=== PATIENT | male | born 1955 | race Hispanic/Latino ===

== ENCOUNTER → 2023-06-05 | Outpatient (CLI) | payer OTHER, MEDICARE ==
[2023-06-05 16:18] LABS: BASOPHILS # (AUTO) 0.07 K/uL (0.00-0.20); BASOPHILS % (AUTO) 0.8 % (0.0-5.0); EOSINOPHILS # (AUTO) 0.35 K/uL (0.00-0.70); EOSINOPHILS % (AUTO) 4.1 % (0.0-8.0); HEMATOCRIT 41.4 % (42-54); IMMATURE GRANULOCYTE ABSOLUTE 0.01 K/uL (0-1); LYMPHOCYTES # (AUTO) 2.2 K/uL (1.0-4.8); LYMPHOCYTES % (AUTO) 26.5 % (21.0-51.0); MEAN CORPUSCULAR HGB CONC 33.6 g/dL (32.0-36.0); MEAN CORPUSCULAR VOLUME 95.4 fL (79-99); MONOCYTES # (AUTO) 0.9 K/uL (0.1-1.0); MONOCYTES % (AUTO) 10.6 % (3.0-13.0); NEUTROPHILS # (AUTO) 4.9 K/uL (1.8-7.7); NEUTROPHILS % (AUTO) 57.9 % (40.0-77.0); PLATELET COUNT (AUTO) 409 K/uL (130-400); RED BLOOD CELL COUNT(AUTO) 4.34 MIL/uL (4.50-6.20); WHITE BLOOD COUNT (AUTO) 8.5 K/uL (4.8-10.8)
== END | disposition home or self-care (01) ==
LOC: LAB 14:43
PROVIDERS: ATTEND Internal Medicine Cardiovascular Disease
DX: I20.9 Angina pectoris, unspecified (principal)
CPT/HCPCS: 36415; 85025

== ENCOUNTER → 2023-08-14 | Outpatient (CLI) | payer OTHER, MEDICARE ==
[~2023-08-14] VITALS: Ht 165.1 cm; Wt 79.7 kg
[~2023-08-14] MED LIST: ATOR40TA71 PO; FAMO40TA7 PO; HYDR12.54 PO; LISI20TA24 PO; METF-446 PO; RIVA2.5T PO; SEMA7TAB2 PO; VITAMIN D3 PO
[2023-08-14 16:07] LABS: BASOPHILS # (AUTO) 0.02 K/uL (0.00-0.20); BASOPHILS % (AUTO) 0.4 % (0.0-5.0); EOSINOPHILS # (AUTO) 0.02 K/uL (0.00-0.70); EOSINOPHILS % (AUTO) 0.4 % (0.0-8.0); HEMATOCRIT 45.3 % (42-54); IMMATURE GRANULOCYTE ABSOLUTE 0.02 K/uL (0-1); LYMPHOCYTES # (AUTO) 1.3 K/uL (1.0-4.8); MEAN CORPUSCULAR HEMOGLOBIN 32.5 pg (27.0-33.0); MEAN CORPUSCULAR VOLUME 90.4 fL (79-99); MONOCYTES # (AUTO) 0.9 K/uL (0.1-1.0); MONOCYTES % (AUTO) 17.1 % (3.0-13.0); NEUTROPHILS # (AUTO) 2.8 K/uL (1.8-7.7); NEUTROPHILS % (AUTO) 55.7 % (40.0-77.0); PLATELET COUNT (AUTO) 287 K/uL (130-400); RED BLOOD CELL COUNT(AUTO) 5.01 MIL/uL (4.50-6.20); RED CELL DISTRIBUTION WIDTH 11.9 % (11.0-15.5)
[2023-08-14 16:17] LABS: CREATININE 1.5 mg/dL (0.5-1.5); INR < 0.93 (0.85-1.15); POTASSIUM 5.1 mmol/L (3.5-5.1); PROTHROMBIN TIME 10.3 SEC (9.6-11.6)
[2023-08-14 16:18] LABS: PARTIAL THROMBOPLASTIN TIME 29.3 SEC (26.3-35.5)
[2023-08-14 16:20] VITALS: BP 148/69; PULSE 85; RESP 16
== END | disposition home or self-care (01) ==
LOC: DAH 10:00 → EDSTATUS 08-19 15:00
PROVIDERS: ATTEND Surgery
DX: Z01.812 Encounter for preprocedural laboratory examination (principal); K42.9 Umbilical hernia without obstruction or gangrene; K43.2 Incisional hernia without obstruction or gangrene; I73.9 Peripheral vascular disease, unspecified; Z79.01 Long term (current) use of anticoagulants
CPT/HCPCS: 36415; 80048; 85025; 85610; 85730

== ENCOUNTER 2023-11-15 05:12 | Day surgery (SDC) | payer OTHER, MEDICARE ==
[~2023-11-15 05:12] MED LIST changes: +ACET-2079 PO; -FAMO40TA7 PO; +MECO10005 PO
[2023-11-15 06:20] LABS: BASOPHILS # (AUTO) 0.07 K/uL (0.00-0.20); BASOPHILS % (AUTO) 0.7 % (0.0-5.0); EOSINOPHILS # (AUTO) 0.39 K/uL (0.00-0.70); EOSINOPHILS % (AUTO) 3.7 % (0.0-8.0); HEMATOCRIT 29.4 % (42-54); IMMATURE GRANULOCYTE ABSOLUTE 0.05 K/uL (0-1); LYMPHOCYTES # (AUTO) 1.6 K/uL (1.0-4.8); LYMPHOCYTES % (AUTO) 15.3 % (21.0-51.0); MEAN CORPUSCULAR HEMOGLOBIN 30.7 pg (27.0-33.0); MEAN CORPUSCULAR HGB CONC 33.3 g/dL (32.0-36.0); MEAN CORPUSCULAR VOLUME 92.2 fL (79-99); MONOCYTES # (AUTO) 1.4 K/uL (0.1-1.0); MONOCYTES % (AUTO) 13.2 % (3.0-13.0); NEUTROPHILS # (AUTO) 7.1 K/uL (1.8-7.7); NEUTROPHILS % (AUTO) 66.6 % (40.0-77.0); PLATELET COUNT (AUTO) 566 K/uL (130-400); RED BLOOD CELL COUNT(AUTO) 3.19 MIL/uL (4.50-6.20); RED CELL DISTRIBUTION WIDTH 13.3 % (11.0-15.5); WHITE BLOOD COUNT (AUTO) 10.6 K/uL (4.8-10.8)
[2023-11-15 06:32] LABS: CREATININE 1.2 mg/dL (0.5-1.5); POTASSIUM 5.3 mmol/L (3.5-5.1)
[2023-11-15 06:48] LABS: INR 1.02 (0.85-1.15); PROTHROMBIN TIME 11.8 SEC (9.6-11.6)
[2023-11-15 06:50] LABS: PARTIAL THROMBOPLASTIN TIME 32.6 SEC (26.3-35.5)
[2023-11-15] MEDS: ACETAMINOPHEN WITH CODEINE 1 TAB TAB ONE (09:39)
[2023-11-15] MEDS: ACETAMINOPHEN WITH CODEINE 1 TAB TAB PO PRN (11:17)
[2023-11-15] MEDS ORDERED: IODIXANOL 320 MG/ML 100 ML VIAL ONE (13:07)
[2023-11-15] MEDS ORDERED: LIDOCAINE HCL 1% MDV 50ML VIAL ONE (13:07)
== END 2023-11-15 14:50 | disposition home or self-care (01) ==
LOC: CLH 05:12 → DAH 06:02 → CLH 14:50
PROVIDERS: ATTEND Internal Medicine Critical Care Medicine
DX: L02.211 Cutaneous abscess of abdominal wall (principal); T83.038A Leakage of other urinary catheter, initial encounter; L03.311 Cellulitis of abdominal wall; A41.9 Sepsis, unspecified organism; R65.21 Severe sepsis with septic shock; K65.8 Other peritonitis; K63.1 Perforation of intestine (nontraumatic); I11.0 Hypertensive heart disease with heart failure; I50.30 Unspecified diastolic (congestive) heart failure; E78.5 Hyperlipidemia, unspecified; E11.9 Type 2 diabetes mellitus without complications; E66.01 Morbid (severe) obesity due to excess calories; F10.10 Alcohol abuse, uncomplicated; Z79.01 Long term (current) use of anticoagulants; Z79.899 Other long term (current) drug therapy
CPT/HCPCS: 49423; 76080; 49424; 75984; 80048; 85025; 85610; 85730; 82948 ×2; 36415; A4344; J1644; J3490; Q9967; C1729; A4215; A4222; A4221; A4663; A4216; A4606; A4223 ×3

== ENCOUNTER → 2024-01-06 | Outpatient (CLI) | payer OTHER, MEDICARE ==
[~2024-01-06] MED LIST changes: +IOHEXOL-350 75 ML VIAL IV ONE
== END | disposition home or self-care (01) ==
LOC: RAH 09:15
PROVIDERS: ATTEND Surgery
DX: K43.9 Ventral hernia without obstruction or gangrene (principal); K63.2 Fistula of intestine; M47.815 Spondylosis without myelopathy or radiculopathy, thoracolumbar region
CPT/HCPCS: 74177; Q9967

== ENCOUNTER 2024-04-17 07:48 | Day surgery (SDC) | payer OTHER, MEDICARE ==
[~2024-04-17 07:48] MED LIST changes: -ACET-2079 PO; +AMIO200T68 PO; +AMLO-258 PO; -HYDR12.54 PO; -IOHEXOL-350 75 ML VIAL IV ONE; -LISI20TA24 PO; -MECO10005 PO; -METF-446 PO; +MULT-1296 PO; -RIVA2.5T PO; -SEMA7TAB2 PO; +VITA1CAP85 PO
== END 2024-04-17 10:40 | disposition home or self-care (01) ==
LOC: DAH 07:48 → RAH 07:48 → EDSTATUS 08:00 → RAH 10:40
PROVIDERS: ATTEND Surgery
DX: L76.34 Postprocedural seroma of skin and subcutaneous tissue following other procedure (principal); T81.89XA Other complications of procedures, not elsewhere classified, initial encounter; I10 Essential (primary) hypertension; E11.9 Type 2 diabetes mellitus without complications; E78.00 Pure hypercholesterolemia, unspecified; Y83.9 Surgical procedure, unspecified as the cause of abnormal reaction of the patient, or of later complication, without mention of misadventure at the time of the procedure
CPT/HCPCS: 10030; 87071; 87205; C1729; 10005; 76942

== ENCOUNTER → 2024-04-30 | Outpatient (CLI) | payer OTHER, MEDICARE ==
[2024-04-30 12:11] LABS: BASOPHILS # (AUTO) 0.06 K/uL (0.00-0.20); BASOPHILS % (AUTO) 0.7 % (0.0-5.0); EOSINOPHILS # (AUTO) 0.39 K/uL (0.00-0.70); EOSINOPHILS % (AUTO) 4.6 % (0.0-8.0); HEMATOCRIT 33.5 % (42-54); IMMATURE GRANULOCYTE ABSOLUTE 0.01 K/uL (0-1); LYMPHOCYTES # (AUTO) 1.8 K/uL (1.0-4.8); MEAN CORPUSCULAR HEMOGLOBIN 31.7 pg (27.0-33.0); MEAN CORPUSCULAR HGB CONC 32.5 g/dL (32.0-36.0); MEAN CORPUSCULAR VOLUME 97.4 fL (79-99); MONOCYTES # (AUTO) 0.8 K/uL (0.1-1.0); MONOCYTES % (AUTO) 9.4 % (3.0-13.0); NEUTROPHILS # (AUTO) 5.5 K/uL (1.8-7.7); NEUTROPHILS % (AUTO) 64.2 % (40.0-77.0); PLATELET COUNT (AUTO) 412 K/uL (130-400); RED BLOOD CELL COUNT(AUTO) 3.44 MIL/uL (4.50-6.20); RED CELL DISTRIBUTION WIDTH 16.1 % (11.0-15.5); WHITE BLOOD COUNT (AUTO) 8.5 K/uL (4.8-10.8)
[2024-04-30 12:22] LABS: ALBUMIN 3.7 g/dL (3.5-5.0); BILIRUBIN,TOTAL 0.3 mg/dL (0.2-1.0); CREATININE 0.9 mg/dL (0.5-1.3); MAGNESIUM 1.6 mg/dL (1.80-2.40); POTASSIUM 5.4 mmol/L (3.5-5.1); TOTAL PROTEIN, SERUM 8.1 g/dL (6.0-8.3)
[2024-04-30 12:41] LABS: B-TYPE NATRIURETIC PEPTIDE 381 pg/mL (0-100)
== END | disposition home or self-care (01) ==
LOC: LAB 10:14
PROVIDERS: ATTEND Internal Medicine Cardiovascular Disease
DX: I10 Essential (primary) hypertension (principal); I73.9 Peripheral vascular disease, unspecified; I50.32 Chronic diastolic (congestive) heart failure
CPT/HCPCS: 36415; 80053; 80061; 83735; 83880; 85025

== ENCOUNTER → 2024-06-17 | Outpatient (CLI) | payer OTHER, MEDICARE ==
[2024-06-17 16:31] LABS: CREATININE 1.5 mg/dL (0.5-1.3); MAGNESIUM 1.9 mg/dL (1.80-2.40)
== END | disposition home or self-care (01) ==
LOC: LAB 12:54
PROVIDERS: ATTEND Internal Medicine Cardiovascular Disease
DX: I73.9 Peripheral vascular disease, unspecified (principal); D64.9 Anemia, unspecified
CPT/HCPCS: 36415; 80048; 83735; 83880

== ENCOUNTER → 2024-10-07 | Outpatient (CLI) | payer OTHER, MEDICARE ==
[2024-10-07 12:16] LABS: BASOPHILS # (AUTO) 0.06 K/uL (0.00-0.20); BASOPHILS % (AUTO) 0.7 % (0.0-5.0); EOSINOPHILS # (AUTO) 0.43 K/uL (0.00-0.70); EOSINOPHILS % (AUTO) 4.7 % (0.0-8.0); HEMATOCRIT 36.3 % (42-54); IMMATURE GRANULOCYTE ABSOLUTE 0.02 K/uL (0-1); LYMPHOCYTES # (AUTO) 2.5 K/uL (1.0-4.8); LYMPHOCYTES % (AUTO) 26.9 % (21.0-51.0); MEAN CORPUSCULAR HEMOGLOBIN 32.4 pg (27.0-33.0); MEAN CORPUSCULAR HGB CONC 32.8 g/dL (32.0-36.0); MEAN CORPUSCULAR VOLUME 98.9 fL (79-99); MONOCYTES # (AUTO) 0.9 K/uL (0.1-1.0); MONOCYTES % (AUTO) 9.7 % (3.0-13.0); NEUTROPHILS # (AUTO) 5.3 K/uL (1.8-7.7); NEUTROPHILS % (AUTO) 57.8 % (40.0-77.0); PLATELET COUNT (AUTO) 359 K/uL (130-400); RED BLOOD CELL COUNT(AUTO) 3.67 MIL/uL (4.50-6.20); RED CELL DISTRIBUTION WIDTH 12.7 % (11.0-15.5); WHITE BLOOD COUNT (AUTO) 9.2 K/uL (4.8-10.8)
[2024-10-07 12:50] LABS: ALBUMIN 3.7 g/dL (3.5-5.0); BILIRUBIN,TOTAL 0.3 mg/dL (0.2-1.0); CREATININE 0.9 mg/dL (0.5-1.3); POTASSIUM 4.6 mmol/L (3.5-5.1)
== END | disposition home or self-care (01) ==
LOC: LAB 10:26
PROVIDERS: ATTEND Internal Medicine Cardiovascular Disease
DX: I10 Essential (primary) hypertension (principal); E78.5 Hyperlipidemia, unspecified
CPT/HCPCS: 36415; 80053; 80061; 85025

== ENCOUNTER 2024-11-03 13:19 | Emergency (ER) | payer OTHER, MEDICARE ==
[~2024-11-03] VITALS: Ht 165.1 cm; Wt 81.6 kg
--- NOTE | 2024-11-03 13:51 | ERN ---
General Chief Complaint: Chest Pain Stated Complaint: SENT BY History of Present Illness Initial Comments 60-year-old male history of ACS and hypertension presents for chest pain on and off for three days. Patient saw Dr. Galvez, was discharged with some nitroglycerin. Today he attempted to go to his office but was unable to get an appointments of the office recommend that he come to the ER for treatment evaluation. He was describing chest pressures that are on and off in the center of the chest. No dizziness dyspnea or other complaints. Allergies: Coded Allergies: No Known Drug Allergies (Unverified Allergy, Unknown, 08/14/23) Home Meds Reported Medications Amiodarone HCl (Amiodarone HCl) 200 Mg Tablet, 200 MG PO BID, TAB 01/11/24 Amlodipine Besylate (Amlodipine Besylate) 10 Mg Tablet, 10 MG PO DAILY for 30 Days, #30 TAB 0 Refills 01/11/24 Vitamin B Complex (Vitamin B Complex) 1 Each Capsule, 1 EACH PO DAILY, CAP 01/11/24 Multivitamin/Iron/Folic Acid (Centrum Adults Tablet) 18 Mg Iron-400 Mcg Tablet, 1 EACH PO DAILY, TAB 01/11/24 Atorvastatin Calcium (Atorvastatin Calcium) 40 Mg Tablet, 40 MG PO HS, TAB 08/14/23 [Vitamin D3] No Conflict Check, 00161 UNIT PO WEEKLY 08/14/23 Past Medical History Past Medical History: Diabetes-Type II, High Cholesterol, Hypertension Medical History Other: HERNIA Past Surgical History: Other Surgical History Other: HERNIA ROS Dictation CONSTITUTIONAL: No chills, no fever, no weakness, no diaphoresis, no malaise. HEAD/FACE: No signs of trauma. EENT: No eye pain, no blurred vision, no tearing, no double vision, no ear pain, no ear discharge, no nose pain, no nasal congestion, no throat pain, no throat swelling, no mouth pain. RESPIRATORY: No cough, no orthopnea, no SOB, no stridor, no wheezing. CARDIOVASCULAR: Chest pain GASTROINTESTINAL/ABDOMINAL: No abdominal pain, no constipation, no diarrhea, no nausea, no vomiting. GENITOURINARY: No abnormal discharge, no dysuria, no frequent urination, no hematuria. No complaints of pain in the genitals. MUSCULOSKELETAL: No back pain, no gout, no joint pain, no joint swelling, no muscle pain, no muscle stiffness, no neck pain. INTEGUMENTARY: No change in color, no change in hair/nails, no dryness, no lesion, no lumps, no rash. NEUROLOGICAL/PSYCH: No anxiety, not depressed, no emotional problem, no headache, no numbness, no pre-existing deficit, no history of seizures, no tremors, no weakness. HEMATOLOGIC/LYMPHATIC: Not anemic, no history of blood clots, no apparent bleeding, no bruising, glands not swollen. All Systems Negative, Except as Noted. Physical Exam Physical Exam Dictation VITAL SIGNS: Reviewed. GENERAL APPEARANCE: Alert, oriented x3, no acute distress HEAD AND FACE: Non-traumatic. EYES: PERRL, pink conjunctivas, eyelid no trauma, anterior chamber clear. EARS: Pinnas intact and no signs of trauma or erythema. Ear canals clear and no discharge. TMs no erythema. NOSE: No discharge, no bleeding. OROPHARYNX: Mouth normal, teeth no caries, tongue pink. Pharynx clear, no erythema. Tonsils no exudates, no abscesses noted. Mucous membrane moist. NECK: Supple, non-tender, no thyromegaly, no masses, no JVD, no bruits. BREAST: Deferred. CHEST: No tenderness, no crepitus, no paradoxical movement, no retractions. LUNGS: Clear, well-ventilated, symmetric, no rales, no wheezing, no rhonchi, no stridor, good breath sounds bilaterally. HEART: Regular rate, regular rhythm, no murmur, no gallops. VASCULAR: No peripheral edema. ABDOMEN: Soft, positive bowel sounds, nondistended, no guarding, nontender, no rebound, no masses no hepatomegaly, no splenomegaly, no Kirk's sign, no hernias. RECTAL: Deferred. GENITAL: Deferred. NEUROLOGICAL: Normal speech, gross motor function intact, gross sensory function intact. MUSCULOSKELETAL: Neck nontender, full range of motion, back nontender, full range of motion. EXTREMITIES: Nontender, full range of motion. SKIN: Color pink, dry, no turgor, no rash, no lacerations, no abrasions, no contusions. LYMPHATICS: Deferred. Results Laboratory and Microbiology Lab and Micro Result Laboratory Tests Test 11/03/24 14:08 11/03/24 14:28 White Blood Count 10.0 K/uL (4.8-10.8) Red Blood Count 3.55 MIL/uL (4.50-6.20) L Hemoglobin 11.4 g/dL (14.0-18.0) L Hematocrit 33.9 % (42-54) L Mean Corpuscular Volume 95.5 fL (79-99) Mean Corpuscular Hemoglobin 32.1 pg (27.0-33.0) Mean Corpuscular Hemoglobin Concent 33.6 g/dL (32.0-36.0) Red Cell Distribution Width 12.4 % (11.0-15.5) Platelet Count 304 K/uL (130-400) Mean Platelet Volume 9.2 fL (7.5-10.5) Immature Granulocyte % (Auto) 0.3 % (0-1) Neutrophils (%) (Auto) 83.8 % (40.0-77.0) H Lymphocytes (%) (Auto) 11.4 % (21.0-51.0) L Monocytes (%) (Auto) 4.2 % (3.0-13.0) Eosinophils (%) (Auto) 0.1 % (0.0-8.0) Basophils (%) (Auto) 0.2 % (0.0-5.0) Neutrophils # (Auto) 8.4 K/uL (1.8-7.7) H Lymphocytes # (Auto) 1.1 K/uL (1.0-4.8) Monocytes # (Auto) 0.4 K/uL (0.1-1.0) Eosinophils # (Auto) 0.01 K/uL (0.00-0.70) Basophils # (Auto) 0.02 K/uL (0.00-0.20) Absolute Immature Granulocyte (auto 0.03 K/uL (0-1) Nucleated Red Blood Cells 0.0 % (0.0-0.19) Sodium Level 138 mmol/L (136-145) Potassium Level 5.6 mmol/L (3.5-5.1) H Chloride Level 109 mmol/L (101-111) Carbon Dioxide Level 17 mmol/L (21-32) L Blood Urea Nitrogen 21 mg/dL (7-18) H Creatinine 1.0 mg/dL (0.5-1.3) Glomerular Filtration Rate Calc 82 mL/min (>90) Random Glucose 107 mg/dL (70-105) H Total Calcium 8.4 mg/dL (8.5-10.1) L B-Type Natriuretic Peptide 162 pg/mL (0-100) H Troponin I < 0.05 ng/mL (0.00-0.05) ED Course Orders Procedure Category Date Status Time Vital Signs Per CPOE 11/03/24 Transmitted Routine 13:47 B-Type Natriuretic LAB 11/03/24 Complete Peptide 13:47 Chest 1vw RAD 11/03/24 Resulted 13:47 12 Lead Ekg Tracing- EKG 11/03/24 Complete Technical 13:47 Oxygen By Nc/Pulse Ox CPOE 11/03/24 Transmitted 13:47 Maintain Iv CPOE 11/03/24 Transmitted 13:47 Iv Insertion CPOE 11/03/24 Transmitted 13:47 Cardiac Monitoring CPOE 11/03/24 Transmitted 13:47 Pulse Oximetry With CPOE 11/03/24 Transmitted Vs And Prn 13:47 Cbc With Differential LAB 11/03/24 Complete 13:47 Activity: Br W/Brp CPOE 11/03/24 Transmitted With Assist 13:47 Creatine Kinase, Total LAB 11/03/24 In Process 13:47 Troponin I High LAB 11/03/24 In Process Sensitivity 13:47 Urinalysis Profile LAB 11/03/24 Logged 13:47 Troponin Poc Order LAB 11/03/24 Complete Only 13:47 Bedside Troponin-I LAB.ER 11/03/24 In Process (Poc) 13:47 Basic Metabolic Panel LAB 11/03/24 In Process 13:47 Aspirin 325mg Tab PHA 11/03/24 Complete (Aspirin 325mg Tab) 14:30 Current Medications Medications (Trade) Dose Ordered Sig/Shelly Route PRN Reason Start Time Stop Time Status Last Admin Dose Admin Aspirin (Aspirin 325mg Tab) 325 mg ONCE ONCE PO 11/03/24 14:30 11/03/24 14:31 DC Vital Signs Date Time Temp Pulse Resp B/P (MAP) Pulse Ox O2 Delivery O2 Flow Rate FiO2 11/03/24 13:49 98.4 77 20 162/72 99 Room Air 0 DX & DISP Disposition: Inpatient Departure Impression: Primary Impression: Chest pain with high risk for cardiac etiology Additional Impressions: Metabolic acidosis, Hyperkalemia, Normocytic anemia Condition: Stable Referrals: ABDI SYED (PCP) SANDOR PEREIRA DO Nov 03, 2024 13:51
--- NOTE | 2024-11-03 13:56 | EKG ---
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
[2024-11-03 14:48] LABS: BASOPHILS # (AUTO) 0.02 K/uL (0.00-0.20); BASOPHILS % (AUTO) 0.2 % (0.0-5.0); EOSINOPHILS # (AUTO) 0.01 K/uL (0.00-0.70); EOSINOPHILS % (AUTO) 0.1 % (0.0-8.0); HEMATOCRIT 33.9 % (42-54); IMMATURE GRANULOCYTE ABSOLUTE 0.03 K/uL (0-1); LYMPHOCYTES # (AUTO) 1.1 K/uL (1.0-4.8); LYMPHOCYTES % (AUTO) 11.4 % (21.0-51.0); MEAN CORPUSCULAR HEMOGLOBIN 32.1 pg (27.0-33.0); MEAN CORPUSCULAR HGB CONC 33.6 g/dL (32.0-36.0); MEAN CORPUSCULAR VOLUME 95.5 fL (79-99); MONOCYTES # (AUTO) 0.4 K/uL (0.1-1.0); MONOCYTES % (AUTO) 4.2 % (3.0-13.0); NEUTROPHILS # (AUTO) 8.4 K/uL (1.8-7.7); NEUTROPHILS % (AUTO) 83.8 % (40.0-77.0); PLATELET COUNT (AUTO) 304 K/uL (130-400); RED BLOOD CELL COUNT(AUTO) 3.55 MIL/uL (4.50-6.20); RED CELL DISTRIBUTION WIDTH 12.4 % (11.0-15.5)
[2024-11-03 15:05] LABS: POTASSIUM 5.6 mmol/L (3.5-5.1)
[2024-11-03 15:08] LABS: B-TYPE NATRIURETIC PEPTIDE 162 pg/mL (0-100)
--- NOTE | 2024-11-03 15:17 | HMCIMG ---
CHEST 1VW HISTORY: Chest pain COMPARISON: 01/24/2024 FINDINGS: A frontal projection of the chest was obtained. Mild bilateral pulmonary infiltrates are seen may be related to mild pulmonary vascular congestion with possible superimposed pneumonitis. The heart is borderline enlarged. Degenerative changes are seen. IMPRESSION: 1. Mild bilateral pulmonary infiltrates are seen may be related to mild pulmonary vascular congestion with possible superimposed pneumonitis.
[2024-11-03] MEDS: ASPIRIN 325MG TAB PO ONE (15:53)
[2024-11-03 15:54] VITALS: BP 142/60; PULSE 77; RESP 19; TEMP 98.6; O2SAT 99
--- NOTE | 2024-11-03 16:22 | NUR ---
PATIENT REQUEST TO LEAVE AMA NOTIFIED DOCTOR ESTHER AND DISCUSSED THE RISK FACTOR, PT WOULD LIKE TO LEAVE SPOKE TO PATIENT AND
--- NOTE | 2024-11-03 18:13 | HP ---
[facility] HISTORY AND PHYSICAL Date of Service: Nov 03, 2024 Time of Service: 18:13 HISTORY OF PRESENT ILLNESS: DATE OF SERVICE: 11/03/2024 This is a 68-year-old male with past medical history of diabetes mellitus type 2, hypertension, hyperlipidemia, history of umbilical hernia repair complicated with intra-abdominal abscess requiring long hospitalization who presented to the hospital secondary to chest pain. Patient states he has been having episodes of midsternal chest pain intermittently for the past 2-3 days. He noted he had worsening chest pain yesterday while he was working on the carpet. The pain lasted for a few minutes and resolved with rest. Denied any numbness to the hands, diaphoresis, nausea, vomiting. He had seen Dr. Galvez before and was di scharged on nitroglycerin. He has not had any prior cardiac procedures or any stress test done before. Denied any abdominal pain, nausea, vomiting, fever, chills. Additionally with the chest pain he has also noted shortness of breath. He was going to follow up with Dr. Mendez has he has noted small bump around his left lower abdominal wall. Denied any drainage from the abdomen. Denied any cough, falls, syncopal episode. 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 Labs were notable for white count of 10.0, hemoglobin was 11.4, platelet count was 304 K sodium was 138, potassium was 5.6, chloride was 109, bicarb was 17, creatinine was 1.0, BNP was 162 REVIEW OF SYSTEMS CONSTITUTIONAL: Denies fevers, chills, or night sweats. No unintentional weight loss reported. NEUROLOGICAL: Denies headache, amaurosis fugax, motor weakness, sensory deficit, vertigo/spinning sensation, gait abnormalities, or tremors. ENT: No hearing loss, otalgia, otorrhea, rhinitis, rhinorrhea, hoarseness, or sore throat. CARDIOVASCULAR: Positive for chest pain at rest and exertion. Denied any orthopnea, PND PULMONARY: Denies any shortness of breath, cough, phlegm/sputum, hemoptysis, pleuritic chest pain. GASTROINTESTINAL: Denies any type of dysphagia to either liquids or solids. Denies nausea, vomiting, pyrosis, early satiety, abdominal pain, diarrhea, constipation, or changes in stool consistency or caliber. Denies coffee-ground emesis, hematemesis, hematochezia, or melanotic stools. GENITOURINARY: Denies frequency, urgency, nocturia, hematuria or incontinence (Storage/Irritative symptoms.) Low urinary stream, straining to void, urinary intermittency or hesitancy, splitting of the voiding stream, terminal dribbling. ENDOCRINOLOGIC: Denies polyuria, polydipsia, polyphagia or heat/cold intolerances. HEMATOLOGIC: Denies thrombophilia/previous clots, or coagulopathy/bleeding disorders. ONCOLOGIC: Denies personal history of malignancy. DERMATOLOGIC: Denies rashes or pruritus. PSYCHIATRIC: Denies any suicidal or homicidal ideation. Denies hallucinations. PAST MEDICAL HISTORY: Diabetes mellitus type 2, hypertension, hyperlipidemia, history of umbilical complicated with intra-abdominal abscess PAST SURGICAL HISTORY: Umbilical hernia repair, history of IR guided intra-abdominal drain placement PAST SOCIAL HISTORY: Currently smokes one pack every two days for at least 10 years. He drinks six beers every weekend for at least five years. Denied any drug use FAMILY HISTORY: Denied any pertinent family history Coded Allergies: No Known Drug Allergies (Unverified Allergy, Unknown, 08/14/23) PHYSICAL EXAM GENERAL APPEARANCE: The patient is awake, alert, and oriented, in no acute cardiopulmonary distress. NEUROLOGICAL: Cranial nerves II-XII grossly intact. Motor is 5/5 in bilateral upper and lower extremities proximal to distal. No sensory deficits. HEENT: Face is symmetric. Pupils are equal and reactive. Extraocular movements are intact. NECK: Supple. No JVD. No thyromegaly. No submental, submandibular, pre- /postauricular, occipital or supraclavicular lymphadenopathy. CHEST: Normal chest expansion. No Telemetry. LUNGS: Absence of any rales, rhonchi or any wheezing. CARDIOVASCULAR: Regular. S1 and S2 normal. No appreciable rubs, murmurs or gallops. ABDOMEN: Soft, nontender, and nondistended. There is no rebound, voluntary guarding, or rigidity. : Deferred. No Lopez. EXTREMITIES: Non-edematous and not cyanotic. No clubbing. Good capillary refill. SKIN: No skin breakdown. Vital Sign (Last 24 Hours) 11/03/24 15:54 Temp 98.6 Pulse 77 Resp 19 B/P (MAP) 142/60 Pulse Ox 99 O2 Delivery Room Air* O2 Flow Rate 0 FiO2 21 LABS: Laboratory: Test 11/03/24 14:28 11/03/24 14:08 Range/Units Troponin I < 0.05 0.00-0.05 ng/mL White Blood Count 10.0 4.8-10.8 K/uL Red Blood Count 3.55 L 4.50-6.20 MIL/uL Hemoglobin 11.4 L 14.0-18.0 g/dL Hematocrit 33.9 L 42-54 % Mean Corpuscular Volume 95.5 79-99 fL Mean Corpuscular Hemoglobin 32.1 27.0-33.0 pg Mean Corpuscular Hemoglobin Concent 33.6 32.0-36.0 g/dL Red Cell Distribution Width 12.4 11.0-15.5 % Platelet Count 304 130-400 K/uL Mean Platelet Volume 9.2 7.5-10.5 fL Immature Granulocyte % (Auto) 0.3 0-1 % Neutrophils (%) (Auto) 83.8 H 40.0-77.0 % Lymphocytes (%) (Auto) 11.4 L 21.0-51.0 % Monocytes (%) (Auto) 4.2 3.0-13.0 % Eosinophils (%) (Auto) 0.1 0.0-8.0 % Basophils (%) (Auto) 0.2 0.0-5.0 % Neutrophils # (Auto) 8.4 H 1.8-7.7 K/uL Lymphocytes # (Auto) 1.1 1.0-4.8 K/uL Monocytes # (Auto) 0.4 0.1-1.0 K/uL Eosinophils # (Auto) 0.01 0.00-0.70 K/uL Basophils # (Auto) 0.02 0.00-0.20 K/uL Absolute Immature Granulocyte (auto 0.03 0-1 K/uL Nucleated Red Blood Cells 0.0 0.0-0.19 % Sodium Level 138 136-145 mmol/L Potassium Level 5.6 H 3.5-5.1 mmol/L Chloride Level 109 101-111 mmol/L Carbon Dioxide Level 17 L 21-32 mmol/L Blood Urea Nitrogen 21 H 7-18 mg/dL Creatinine 1.0 0.5-1.3 mg/dL Glomerular Filtration Rate Calc 82 >90 mL/min Random Glucose 107 H 70-105 mg/dL Total Calcium 8.4 L 8.5-10.1 mg/dL Total Creatine Kinase 44 # 21-232 U/L Troponin I High Sensitivity 9 4-75 ng/L B-Type Natriuretic Peptide 162 H 0-100 pg/mL DIAGNOSTICS / RADIOLOGY: Chest x-ray shows no acute infiltrates ASSESSMENT: Chest pain ACS rule out POA differential unstable angina Hyperkalemia Metabolic acidosis Diabetes mellitus type 2 Hypertension Hyperlipidemia History of umbilical hernia repair complicated by intra-abdominal abscess requiring hospitalization in 2023 Tobacco abuse History of alcohol PLAN: - I was called to admit the patient by ED secondary to chest pain. I saw the patient and examined the patient. I spoke to patient and her his . I recommended admission to the patient in setting of chest pain. I recommended patient to undergo troponin trend q.6 hours to rule out ACS. Additionally I also recommended consultation with Cardiology in setting of intermittent chest pain. Patient was also noted to be hyperkalemic and had metabolic acidosis. I recommended a ABG to be done with ketones. I also recommended medical therapy for hyperkalemia. Patient with history of intra-abdominal abscess. I also recommended a CT abdomen/pelvis to be done without contrast to rule out any intra-abdominal abscess. Patient declined to be admitted and wanted to leave against medical advice. I counseled the patient strongly to stay in the hospital and undergo further workup. Patient still adamantly declined. Patient signed AMA paperwork. I counseled patient that he is at high risk for morbidity and mortality on leaving against medical advice. Patient undestood the risk and still decided to leave. I also discussed this with ED physician. No admission order was placed since patient refused to be admitted. TERRENCE Garcia MD, MD Nov 03, 2024 18:13
== END 2024-11-03 16:16 | disposition left against medical advice (07) ==
LOC: EDH 13:19
DX: E87.5 Hyperkalemia (principal); R07.89 Other chest pain; E87.20 Acidosis, unspecified; D64.9 Anemia, unspecified; E11.9 Type 2 diabetes mellitus without complications; E78.00 Pure hypercholesterolemia, unspecified; F17.200 Nicotine dependence, unspecified, uncomplicated; I10 Essential (primary) hypertension; Z98.890 Other specified postprocedural states
CPT/HCPCS: 36415; 71045; 80048; 82550; 83880; 84484; 85025; 93005; 99285

== ENCOUNTER 2025-03-12 08:39 | Inpatient (IN) | payer OTHER, MEDICARE ==
[2025-03-10 11:39] LABS: BASOPHILS # (AUTO) 0.08 K/uL (0.00-0.20); BASOPHILS % (AUTO) 0.9 % (0.0-5.0); EOSINOPHILS # (AUTO) 0.54 K/uL (0.00-0.70); EOSINOPHILS % (AUTO) 6.3 % (0.0-8.0); IMMATURE GRANULOCYTE ABSOLUTE 0.02 K/uL (0-1); LYMPHOCYTES # (AUTO) 2.4 K/uL (1.0-4.8); LYMPHOCYTES % (AUTO) 27.4 % (21.0-51.0); MEAN CORPUSCULAR HEMOGLOBIN 32.8 pg (27.0-33.0); MEAN CORPUSCULAR HGB CONC 34.6 g/dL (32.0-36.0); MEAN CORPUSCULAR VOLUME 94.7 fL (79-99); MONOCYTES # (AUTO) 0.9 K/uL (0.1-1.0); MONOCYTES % (AUTO) 10.2 % (3.0-13.0); NEUTROPHILS # (AUTO) 4.7 K/uL (1.8-7.7); PLATELET COUNT (AUTO) 362 K/uL (130-400); RED BLOOD CELL COUNT(AUTO) 4.33 MIL/uL (4.50-6.20); RED CELL DISTRIBUTION WIDTH 13.1 % (11.0-15.5); WHITE BLOOD COUNT (AUTO) 8.6 K/uL (4.8-10.8)
[2025-03-10 11:50] LABS: POTASSIUM 4.7 mmol/L (3.5-5.1)
[2025-03-10 11:51] LABS: INR 0.97 (0.85-1.15); PROTHROMBIN TIME 10.3 SEC (9.6-11.6)
[2025-03-10 11:52] LABS: PARTIAL THROMBOPLASTIN TIME 26.5 SEC (26.3-35.5)
[2025-03-10 12:49] VITALS: BP 145/76; PULSE 89; RESP 18; TEMP 99.9
[2025-03-12] VITALS (25 sets, daily range): BP systolic 144–184; BP diastolic 63–89; PULSE 16–88; RESP 15–19; TEMP 97.5–98.8; O2SAT 94–98
[~2025-03-12] VITALS: Ht 165.1 cm; Wt 81.6 kg
[~2025-03-12 08:39] MED LIST changes: +AEC81 PO; -AMIO200T68 PO; -AMLO-258 PO; +ATOR40TA69 PO; -ATOR40TA71 PO; +LOSA50TA64 PO; -MULT-1296 PO; +SACU1TAB PO; +SEMA3TAB4 PO; -VITA1CAP85 PO; -VITAMIN D3 PO; +phenylEPHRINE HCL 10 MG/ML 1ML VIAL IV ONE
[2025-03-12] MEDS ORDERED: ketaMINE 50MG/ML SYRINGE 50 MG/ML DISP.SYRIN ONE (09:02)
[2025-03-12] MEDS ORDERED: ALBUMIN (HUMAN) 5% 250 ML IV ONE (09:03)
[2025-03-12] MEDS ORDERED: ROPivacaine 0.5% 5MG/ML 30ML ONE (09:04)
[2025-03-12] MEDS ORDERED: ePHEDrine SULFate 50 MG/ML AMPULE ONE (09:06)
[2025-03-12] MEDS ORDERED: dexaMETHasone SOD PHOSPHATE 10MG/ML 1ML VIAL ONE (09:08)
[2025-03-12] MEDS ORDERED: LIDOCAINE PF 100MG/5ML (2%) SYRINGE 5ML ONE (09:08)
[2025-03-12] MEDS ORDERED: FENTanyl CITRate PF 50 MCG/1 ML 2ML VIAL ONE ×3 (09:09→11:13)
[2025-03-12] MEDS ORDERED: ondanSETRON 4MG INJ ONE (09:09)
[2025-03-12] MEDS ORDERED: SUCCINYLCHOLINE CHLORIDE 20 MG/ML 10 ML VIAL ONE (09:09)
[2025-03-12] MEDS ORDERED: rocuRONium bROMide 10MG/1ML 5ML VL ONE (09:09)
[2025-03-12] MEDS ORDERED: proPOFol 10 MG/ML 20ML VIAL IV ONE (09:09)
[2025-03-12] MEDS ORDERED: GLYCOPYRROLATE 0.2 MG/ML 5 ML VIAL ONE (09:09)
[2025-03-12] MEDS ORDERED: NEOSTIGMINE METHYLSULFATE 1MG/ML IV ONE (09:09)
[2025-03-12] MEDS ORDERED: MIDAZOLAM HCL 1 MG/ML 2ML VIAL ONE (09:10)
[2025-03-12] MEDS ORDERED: BUPIvacaine/PF 0.25% 30ML VIAL IJ ONE (09:51)
[2025-03-12] MEDS: ceFAZolin SODIUM 2 GM VIAL IVPB ONE ×2 (10:19)
--- NOTE | 2025-03-12 11:30 | OP ---
Operative Note: DATE OF PROCEDURE: 03/12/25 SURGEON: EFREN CHOI MD CRTS: [] ANESTHESIA: [] General ANESTHESIOLOGIST/DOOR FRAME BUILDER: [] PREOPERATIVE DIAGNOSIS: [] Incisional hernia POSTOPERATIVE DIAGNOSIS: [] The same SYNOPSIS: [] PROCEDURE: [] Repair of incisional hernia with mesh Drainage of preperitoneal collection ESTIMATED BLOOD LOSS: [] Minimal INDICATIONS: [] DESCRIPTION OF PROCEDURE: [] With the patient prepped and draped we did an incision over previous midline scar. As soon as we went through the subcutaneous tissue we found a whitish secretion. It was not odorous and we t ook cultures and drain it. I then entered the abdomen in there was no collection in the peritoneum. I lysed all the adhesions to the abdominal wall. I found a large incisional hernia in the left side of the midline incision. After copious irrigation in the cleaning the edges of the fascia I did decided to place a Phasix mesh because of the sterile collection found in the pre pe ritoneum. This was a 20 by 15 cm and was anchored in the four corners with a nylon. The rest of the mesh was anchored to the abdominal wall with tackers. After this was done I approximated the fascia using Stratafix 1. I made two small incisions in the lower portion of the abdomen in order to place two MAN 10. In the side of the skin flap. I approximated then the subcutaneous tissue with 2-0 Monocryl figure eights. The skin was closed with staplers and we anchored the MAN with nylon. Patient was stable during the whole procedure and was going to get an abdominal binder. EFREN CHOI MD Mar 12, 2025 11:30
[2025-03-12] MEDS: morPHINE 2 MG SYG ONE (12:26)
[2025-03-12] MEDS: 0.9%NACL 1000ML 1,000 ML IV ONE (14:10)
[2025-03-12] MEDS: ceFAZolin SODIUM 2 GM VIAL ONE (14:10)
[2025-03-12] MEDS: ZOSYN 3.375GM +NS 50ML IV SCH (15:09)
[2025-03-12] MEDS: 0.9%NACL 1000ML 1,000 ML IV SCH (15:10)
[2025-03-12] MEDS: ketOROlac 15MG/ML VIAL (15MG/ML) IV PRN (15:33)
--- NOTE | 2025-03-12 16:46 | NUR ---
Hernia follow up Per Dr. Mendez, hernia size was 10 cm and not reducible. Patient to stay as INPT.
[2025-03-12] MEDS: SACUBITRIL/VALSARTAN 1 EACH TABLET PO SCH (19:57)
[2025-03-12] MEDS: atorVAStatin 40 MG TABLET PO SCH (19:57)
[2025-03-12] MEDS: INSULIN humuLIN R 100 UNIT/ML 3ML SQ SCH (20:01)
[2025-03-12] MEDS: morPHINE 4 MG SYG IVP PRN (22:51)
[2025-03-13] VITALS (7 sets, daily range): BP systolic 131–177; BP diastolic 65–80; PULSE 67–76; RESP 18–21; TEMP 97.9–98.6; O2SAT 96
--- NOTE | 2025-03-13 03:50 | NUR ---
nurse note patient alert and oriented times 4. plan of care discussed with him and he verbalized understanding. encouraged patient to walk and he refused tonight due to "too much pain." He said he will walk in the am with physical therapist. He has urinated tonight on the urinal clear yellow urine. His claudia drains are to bulb suction. The left claudia drain (#2) has more serosanguineous output than the right claudia drain (#1). Patient has slept about 5 hours tonight. His abdominal pain is relieved by toradol and morphine. call light within reach, bed alarm on, 2 side rails up, will continue to monitor patient.
[2025-03-13 05:10] LABS: BASOPHILS # (AUTO) 0.02 K/uL (0.00-0.20); BASOPHILS % (AUTO) 0.1 % (0.0-5.0); HEMATOCRIT 35.7 % (42-54); IMMATURE GRANULOCYTE ABSOLUTE 0.09 K/uL (0-1); LYMPHOCYTES # (AUTO) 1.2 K/uL (1.0-4.8); LYMPHOCYTES % (AUTO) 8.2 % (21.0-51.0); MEAN CORPUSCULAR HEMOGLOBIN 32.4 pg (27.0-33.0); MEAN CORPUSCULAR HGB CONC 33.1 g/dL (32.0-36.0); MEAN CORPUSCULAR VOLUME 98.1 fL (79-99); NEUTROPHILS # (AUTO) 12.3 K/uL (1.8-7.7); NEUTROPHILS % (AUTO) 84.1 % (40.0-77.0); PLATELET COUNT (AUTO) 283 K/uL (130-400); RED BLOOD CELL COUNT(AUTO) 3.64 MIL/uL (4.50-6.20); WHITE BLOOD COUNT (AUTO) 14.7 K/uL (4.8-10.8)
[2025-03-13 05:35] LABS: WBC MORPHOLOGY CONSISTENT W/DIFF
[2025-03-13 05:37] LABS: PLATELET MORPHOLOGY LARGE PLTS PRESENT
[2025-03-13 05:38] LABS: CREATININE 1.2 mg/dL (0.5-1.3); POTASSIUM 4.7 mmol/L (3.5-5.1)
--- NOTE | 2025-03-13 07:33 | PN ---
Postop day one after ventral hernia repair with mesh Drains in place. Left-sided drain had 65 mL out. Right-sided drain minimal drainage. Look sanguinous. Patient reporting he is passing gas. Denies any nausea or vomiting. No bowel movements yet Exam Patient alert and oriented x3 No respiratory distress Cardiovascular regular rhythm Incisions are covered clean dry and intact MAN drain with sanguinous output Assessment and plan Advance diet as tolerated. Up and ambulating. Potential discharge tomorrow. Vitals/Labs Vital Signs Date Time Temp Pulse Resp B/P (MAP) Pulse Ox O2 Delivery O2 Flow Rate FiO2 03/13/25 04:00 98.4 72 18 131/65 93 Room Air 03/12/25 19:05 0 21 Laboratory Tests 03/13/25 04:44 JACEY ARREDONDO MD Mar 13, 2025 07:32
[2025-03-13] MEDS: SEMAGLUTIDE 3 MG PO SCH (08:17)
[2025-03-13] MEDS ORDERED: LoSARTan 50 MG TABLET PO SCH (09:00)
--- NOTE | 2025-03-13 17:00 | NUR ---
INITIAL/DCP HOME Met w pt and sig other this afternoon to discuss dcp. EC sig other Haroldo Alexandre [phone]. Demographics confirmed. Pt lives alone. He is independent w ambulation and ADLs. He receives approx 27hr/wk of provider services thru [facility]. DME: [facility]. Preferred pharmacy is [facility]. Pt does not report any insecurities with food, long term, and/or utilities. Discharge goal is to return home. Addendum: 03/14/25 at 0910 by CAROLINA MONTOYA Amended: Links added.
[2025-03-14] VITALS: BP 137/59; PULSE 79; RESP 18; TEMP 98.3
--- NOTE | 2025-03-14 03:08 | NUR ---
nurse note patient alert and oriented times 4. plan of care discussed with him and he verbalized understanding. encouraged patient to walk tonight and he refused. he says he can void on the urinal tonight and walk again in the am. He is passing gas. He has intermittent abdominal pain relieved by morphine. He has slept about 5 hours tonight. call light within reach, bed alarm on, 2 side rails up. will continue to monitor patient.
[2025-03-14 04:00] VITALS: BP 145/80; PULSE 66; RESP 18; TEMP 98.4
[2025-03-14 08:00] VITALS: BP 162/86; PULSE 75; RESP 20; TEMP 98
[2025-03-14 08:23] VITALS: O2SAT 94
[2025-03-14 12:00] VITALS: BP 160/80; PULSE 72; RESP 19; TEMP 97.9
--- NOTE | 2025-03-14 13:02 | DS ---
Discharge Summary HOSPITAL COURSE SUMMARY: Patient admitted after open incisional hernia repair with Dr. Mendez. Postoperatively has done well tolerating his diet already having bowel movements today pain is controlled. No nausea no vomiting. MAN drain with minimal output SUSPECT ARTIST SUPERVISOR(S): none PROCEDURES: Open incisional hernia repair with mesh PROBLEM(S): Incisional hernia DISCHARGE INSTRUCTIONS: Drain management and document output on a daily basis. Follow up in the office in one week. Wear abdominal binder at all times. Okay to shower. No lifting anything more than 15 lb. Home Meds Active Scripts Sacubitril/Valsartan (Entresto 24 mg-26 mg Tablet) 24 Mg-26 Mg Tablet, 1 TAB PO BID for 30 Days, #60 TAB 0 Refills Prov:DIXIE AGUIRRE 12/21/24 Losartan Potassium (Losartan Potassium) 50 Mg Tablet, 1 TAB PO DAILY for 30 Days, #30 TAB 0 Refills Prov:DIXIE AGUIRREPCJOSE ANTONIO 12/21/24 Atorvastatin Calcium (LIPITOR) 40 Mg Tablet, 40 MG PO HS, #30 TAB 0 Refills Prov:DIXIE AGUIRREPCJOSE ANTONIO 12/21/24 Aspirin (ASPIRIN 81 MG ECTAB) 81 Mg Ectab, 81 MG PO DAILY, #30 TAB.EC 0 Refills Prov:DIXIE AGUIRRE 12/21/24 Reported Medications Semaglutide (Rybelsus) 3 Mg Tablet, 3 MG PO DAILY, TAB 12/15/24 Discontinued Reported Medications Ezetimibe (Ezetimibe) 10 Mg Tablet, 10 MG PO DAILY, TAB 12/15/24 Discontinued Scripts Furosemide (Lasix 20Mg Tab) 20 Mg Tablet, 20 MG PO Q12H, #60 TAB 0 Refills Prov:DIXIE AGUIRREPCNP 12/21/24 Famotidine (Famotidine) 20 Mg Tablet, 20 MG PO DAILY, #30 TAB 0 Refills Prov:DIXIE AGUIRRE 12/21/24 Benzonatate (Benzonatate) 100 Mg Capsule, 100 MG PO Q8H PRN for COUGH, #30 CAP 0 Refills Prov:DIXIE AGUIRREPCNP 12/21/24 JACEY ARREDONDO MD Mar 14, 2025 13:02
--- NOTE | 2025-03-14 16:00 | NUR ---
WOUND DRESSING CHANGE EDUCATED PT AND FAMILY MEMBER (DAUGHTER) ON WOUND CARE AND DRESSING CHANGE. EDUCATED PT AND FAMILY ON MAN DRAINAGE AND CARE. PT VERBALIZED UNDERSTANDING AND DENIED FURTHER ASSISTANCE. PIC OF INCISION TAKEN WITH IPAD. IV WAS REMOVED WITHOUT COMPLICATIONS & PT IS WAITING TO BE TRANSPORTED TO THE MAIN ENTRANCE.
--- NOTE | 2025-03-14 17:30 | NUR ---
Discharged Pt was transported to the main entrance via W/C by MANAGER CONCRETE. No s/s of distress noted.
== END 2025-03-14 17:30 | disposition home or self-care (01) | DRG 355 ==
LOC: DAH 08:39 → DAHIP 08:40 → DAH 08:40 → 4AH 13:10
PROVIDERS: ADMIT Surgery; ATTEND Surgery
PROC: 0WUF0JZ Supplement Abdominal Wall with Synthetic Substitute, Open Approach (ICD-10-PCS; principal; 2025-03-12 10:09)
DX: K43.2 Incisional hernia without obstruction or gangrene (principal); K66.0 Peritoneal adhesions (postprocedural) (postinfection)
CPT/HCPCS: 36415; 80048; 82948; 85025; 85610; 85730; 87070; 87076; A4450; G0378; J0330; J1100; J1815; J1885; J2003; J2250; J2270; J2371; J2405; J2543; J2704; J2710; J2795; J3010; J3490; J7030; P9045; A4213; A4215; A4216; A4221; A4222; A4223; A4600; A4649; A4663; A4930; A6260; C1781; J0665; J0690

== ENCOUNTER → 2025-04-13 | Outpatient (CLI) | payer OTHER, MEDICAID ==
[~2025-04-13] MED LIST changes: -phenylEPHRINE HCL 10 MG/ML 1ML VIAL IV ONE
--- NOTE | 2025-04-13 17:58 | HMCIMG ---
EXAM: CT Abdomen and Pelvis without Intravenous Contrast CLINICAL HISTORY: 69-year-old male with unspecified abdominal pain TECHNIQUE: Axial computed tomography images of the abdomen and pelvis without intravenous contrast. Dose reduction technique was used including one or more of the following: automated exposure control, adjustment of mA and kV according to patient size, and/or iterative reconstruction. CONTRAST: Without COMPARISON: 05/19/2023 FINDINGS: LUNG BASES: Atelectasis and scarring of the lung bases. LIVER: Unremarkable. GALLBLADDER AND BILE DUCTS: Unremarkable. No calcified stone. No ductal dilation. PANCREAS: Unremarkable. SPLEEN: Unremarkable. ADRENAL GLANDS: Unremarkable. KIDNEYS, URETERS, AND BLADDER: Nonspecific bilateral perinephric fat stranding. No hydronephrosis or nephrolithiasis. No ureteral calculi. Thickening of the bladder white suggesting chronic cystitis. STOMACH AND BOWEL: There is a left anterior abdominal wall hernia containing loops of small bowel and colon without evidence for obstruction. No wall thickening. No CT evidence of colitis or acute diverticulitis. APPENDIX: Normal appendix. No CT evidence for appendicitis. PERITONEUM: No free fluid. No free air. ABDOMINAL WALL AND SOFT TISSUES: Postsurgical changes of the anterior abdominal wall seen with some areas of phlegmon in the anterior abdominal wall musculature. Focal fluid collection 10.5 x 1.3 x 6.5 cm consistent with abdominal wall abscess formation significantly increased in size compared to the prior exam. LYMPH NODES: No lymphadenopathy. REPRODUCTIVE: Unremarkable as visualized. VASCULATURE: Atherosclerotic changes of the aorta and iliac bifurcation. BONES: Mild degenerative changes of the lumbar spine. No acute fracture or suspicious osseous abnormality. IMPRESSION: 1. Focal fluid collection consistent with abdominal wall abscess formation, significantly increased in size compared to the prior exam. 2. Postsurgical changes of the anterior abdominal wall with areas of phlegmon in the anterior abdominal wall musculature. 3. Left anterior abdominal wall hernia containing loops of small bowel and colon without evidence for obstruction. 4. Thickening of the bladder white suggesting chronic cystitis. /[place]
== END | disposition home or self-care (01) ==
LOC: RAH 14:46
PROVIDERS: ATTEND Surgery
DX: K43.9 Ventral hernia without obstruction or gangrene (principal); J98.11 Atelectasis; J98.4 Other disorders of lung; I70.0 Atherosclerosis of aorta; I70.8 Atherosclerosis of other arteries; M47.816 Spondylosis without myelopathy or radiculopathy, lumbar region; R10.9 Unspecified abdominal pain
CPT/HCPCS: 74176

== ENCOUNTER 2025-04-27 08:52 | Day surgery (SDC) | payer OTHER, MEDICAID ==
[2025-04-27 09:14] LABS: IMMATURE GRANULOCYTE ABSOLUTE 0.01 K/uL (0-1); NUCLEATED RED BLOOD CELLS 0.0 % (0.0-0.19); PLATELET COUNT (AUTO) 327 K/uL (130-400); RED BLOOD CELL COUNT(AUTO) 4.23 MIL/uL (4.50-6.20); RED CELL DISTRIBUTION WIDTH 13.1 % (11.0-15.5); WHITE BLOOD COUNT (AUTO) 6.8 K/uL (4.8-10.8)
[2025-04-27 09:21] LABS: INR 1.0 (0.85-1.15)
[2025-04-27] MEDS: 0.9%NACL 1000ML 1,000 ML IV SCH (09:51)
[2025-04-27 09:59] VITALS: BP 161/67; PULSE 88; RESP 16; TEMP 98.1
[2025-04-27] MEDS ORDERED: MIDAZOLAM HCL 1 MG/ML 2ML VIAL ONE (10:55)
--- NOTE | 2025-04-27 11:30 | NUR ---
CT GD DRAINAGE CATHETER PLACEMENT PROCEDURE PERFORMED BY DR Catalino DE GUZMAN. PUNCTURE SITE RT MID ABDOMEN. PATIENT TOLERATED PROCEDURE WELL. 8FR PIGTAIL CATHETER PLACED TO ABD WALL FLUID COLLECTION AND CONNECTED TO ACCORDION BAG. CATHETER SUTURED IN PLACE AND DRESSING APPLIED. SPECIMEN COLLECTED AND SENT TO LAB. END OF PROCEDURE AT 1115. REPORT GIVEN TO DEONDRE ARNETT AND PATIENT TRANSPORTED TO DAY PATIENT VIA BED AT 1130. AAO X3 WITH NO C/O PAIN.
[2025-04-27 11:45] VITALS: BP 160/76; PULSE 78; RESP 14; TEMP 97.8
[2025-04-27 12:00] VITALS: BP 158/77; PULSE 87; RESP 16
--- NOTE | 2025-04-27 12:35 | NUR ---
FULL AND COMPLETE DISCHARGE INSTRUCTIONS GIVEN TO PATIENT AND FAMILY BOTH VERBALLY AND IN WRITING. VOICED UNDERSTANDING TO PERCUTANEOUS DRAIN PROCEDURE. DISCUSSED FOLLOW UP, EXPECTATIONS AND PRECAUTIONS. PATIENT DENIES C/O PAIN OR NEED.ALL SUPPLIES AND FLOW SHEET FOR DOCUMENTATION PROVIDED. PATIENT AND SO BOTH VERBALIZED UNDERSTANDING TO PLAN OF CARE. DRAINED 80 MLS OF [place] FLUID FROM BAG. DEMONSTRATED HOW TO CHARGE ACCORDIAN BAFFLE ON DEVICE BAG. PIV REMOVED WITH CATHETER TIP INTACT. W/C TO POV WITH FAMILY TO HOME SCHEDULED.
--- NOTE | 2025-04-27 12:36 | HMCIMG ---
INDICATION: Need for access PHYSICIAN: Rosario Hardy M.D. FINDINGS: Informed consent was obtained (including discussion of the risks, benefits and alternatives to the procedure as detailed in the Disclosure and Consent Document [id number] or [id number]). Patient was placed on the CT table in the supine position. A preprocedure timeout was performed. The mid abdomen was prepped and draped using elements of maximal sterile barrier technique, hand hygiene and skin preparation. Lidocaine 1% was used for superficial anesthesia. CT survey demonstrated anterior abdominal wall collection.. With CT guidance, a multipurpose 8 Haitian drainage catheter with trocar was advanced into the collection.. The fluid appears to be clear suggesting of a seroma.. The catheter was secured with 0 silk suture. This was connected to a drainage bag.. The patient tolerated the procedure with no immediate complication. IMPRESSION: CT-guided pigtail drainage catheter placement within the right anterior abdominal wall subcutaneous collection suggesting of a seroma. Follow-up CT after removal of 100 cc demonstrate most of the collection has been removed...
== END 2025-04-27 12:42 | disposition home or self-care (01) ==
LOC: DAH 08:52 → RAH 08:52 → EDSTATUS 09:00 → RAH 12:42
PROVIDERS: ATTEND Surgery
DX: L02.211 Cutaneous abscess of abdominal wall (principal); R10.9 Unspecified abdominal pain; I10 Essential (primary) hypertension; E78.00 Pure hypercholesterolemia, unspecified; E11.9 Type 2 diabetes mellitus without complications; Z79.82 Long term (current) use of aspirin; Z79.899 Other long term (current) drug therapy
CPT/HCPCS: 10030; 85025; 85610; 85730; 82948; 36415; 99152; 99153; J3010; J2250; C1729; A4215 ×2; A4222; A4221; A4663; A4216; A4606; A4223 ×3; 49406; 77012; G0500

== ENCOUNTER → 2025-09-03 | Outpatient (CLI) | payer OTHER, MEDICAID ==
[~2025-09-03] MED LIST changes: -AEC81 PO; -ATOR40TA69 PO; +IOHEXOL 350 MG/ML 100ML INFUS..BTL IV ONE; -LOSA50TA64 PO; -SACU1TAB PO; -SEMA3TAB4 PO
--- NOTE | 2025-09-04 13:01 | HMCIMG ---
EXAM: CT Abdomen and Pelvis with IV contrast CLINICAL HISTORY: Unspecified abdominal pain TECHNIQUE: Axial computed tomography images of the abdomen and pelvis with intravenous contrast. CONTRAST: with intravenous contrast. COMPARISON: Study dated 04/13 FINDINGS: LUNG BASES: No pleural effusions are seen. Fibroatelectatic band right lower lobe of lung LIVER: Unremarkable. GALLBLADDER AND BILE DUCTS: The gallbladder appears within normal limits. No radioopaque gallstones are seen. No biliary ductal dilatation is evident. PANCREAS: Unremarkable. SPLEEN: Unremarkable. ADRENAL GLANDS: Unremarkable. KIDNEYS, URETERS, AND BLADDER: Nonspecific bilateral perinephric fat stranding. No hydronephrosis or nephrolithiasis. No ureteral calculi STOMACH AND BOWEL: Unremarkable appearance of the stomach. No evidence of bowel obstruction. No evidence suggesting enteritis or colitis. Uncomplicated diverticular second part of the duodenum measuring approximately 2 x 1.7 cm APPENDIX: No evidence of acute appendicitis on CT examination. PERITONEUM: No free fluid. No free air. LYMPH NODES: No lymphadenopathy is evident. REPRODUCTIVE: The prostate gland is mildly enlarged in size, measuring approximately 4.8 x 4.3 joint VASCULATURE: Atherosclerotic changes of the aorta and iliac bifurcation. No abdominal aortic aneurysm. BONES: Mild degenerative changes of the lumbar spine, more pronounced at the L4-L5 and L5-S1 level No acute fracture or suspicious osseous abnormality. ABDOMINAL WALL There is a left anterior abdominal wall hernia containing loops of small bowel and colon without evidence for obstruction; the defect measures approximately 10 x 8 cm. Indirect inguinal hernia on the left side with herniation of peritoneal fat. Near complete resolution of abdominal wall abscess. IMPRESSION: 1. No acute intraabdominal or pelvic pathology. 2. Left anterior abdominal wall hernia measuring 10 x 8 cm, containing small bowel and colon without obstruction. 3. Near complete resolution of abdominal wall abscess. 4. Left indirect inguinal hernia with herniation of peritoneal fat. /[place]
== END | disposition home or self-care (01) ==
LOC: RAH 10:44
PROVIDERS: ATTEND Surgery
DX: K40.90 Unilateral inguinal hernia, without obstruction or gangrene, not specified as recurrent (principal); R10.9 Unspecified abdominal pain; K43.9 Ventral hernia without obstruction or gangrene; N40.0 Benign prostatic hyperplasia without lower urinary tract symptoms; I70.0 Atherosclerosis of aorta; M47.817 Spondylosis without myelopathy or radiculopathy, lumbosacral region
CPT/HCPCS: 74177; Q9967